=== PATIENT | female | born 1960 | race Caucasian/White ===

== ENCOUNTER 2018-12-09 07:49 | Day surgery (SDC) | payer BC, OTHER ==
[~2018-12-09 07:49] MED LIST: Midazolam 1 MG/ML 2 ML SDV ONE; Propofol 200 MG/20 ML SDV ONE; fentaNYL 100 MCG/2 ML SDV ONE
[2018-12-09] MEDS ORDERED: Sodium Chloride 0.9% 1,000 ML IV SCH (08:15)
--- NOTE | 2018-12-10 07:43 | OR ---
DATE OF PROCEDURE: 12/09/2018 SURGEON: Owen Avilez MD PROCEDURE: Colonoscopy. FINDINGS: Normal colonoscopy. COMPLICATIONS: None. HOCKEY PLAYER: None. ANESTHESIA: MAC. PREOPERATIVE DIAGNOSIS: Screening colonoscopy. POSTOPERATIVE DIAGNOSIS: Screening colonoscopy. RISKS: Risks, benefits, alternatives, and limitations including, but not limited to infection, bleeding, and perforation were explained to the patient who wished to proceed. PROCEDURE IN DETAIL: The patient was placed in left lateral decubitus position. Digital rectal exam was performed. Mild external hemorrhoids were noted along with a skin tag. Scope was introduced and advanced atraumatically to the ileocecal valve. A photo was taken of this. Scope was brought back to the ascending, transverse, descending colon, and retroflexed. No evidence of old or new blood. No masses. No diverticulosis. No colitis. The patient tolerated the procedure well. Owen Avilez MD /[id number]
== END 2018-12-09 11:03 | disposition home or self-care (01) ==
LOC: JP.SDS 07:49
PROVIDERS: ATTEND Surgery
DX: Z12.11 Encounter for screening for malignant neoplasm of colon (principal); K64.4 Residual hemorrhoidal skin tags
CPT/HCPCS: 45378; J2250; J2704; J3010; J7030

== ENCOUNTER 2019-12-30 18:40 | Emergency (ER) | payer OTHER, BC ==
[2019-12-30] MEDS ORDERED: Sodium Chloride 0.9% 10 ML Syringe FLUSH PRN (19:38)
[2019-12-30] MEDS ORDERED: Cyclobenzaprine 10 MG Tab PO ONE (19:39)
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
[2019-12-30] MEDS ORDERED: Sodium Chloride 0.9% 1,000 ML IV SCH (19:45)
[2019-12-30] MEDS ORDERED: Iopamidol 612 MG/ML 100 ML Bottle IV PRN (20:04)
[2019-12-30] MEDS ORDERED: Sodium Chloride 0.9% 10 ML SDV FLUSH ONE (20:04)
[2019-12-30] MEDS ORDERED: Sodium Chloride 0.9% 75 ML IV SCH (20:15)
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
== END 2019-12-30 22:21 | disposition home or self-care (01) ==
LOC: JP.ED 18:40
DX: S20.229A Contusion of unspecified back wall of thorax, initial encounter (principal); S80.02XA Contusion of left knee, initial encounter; M54.2 Cervicalgia; M25.532 Pain in left wrist; E03.9 Hypothyroidism, unspecified; Z88.0 Allergy status to penicillin; Z88.2 Allergy status to sulfonamides; Z79.899 Other long term (current) drug therapy; V89.2XXA Person injured in unspecified motor-vehicle accident, traffic, initial encounter; Y92.411 Interstate highway as the place of occurrence of the external cause
CPT/HCPCS: 36415; 71260; 72125; 73080-RT; 80048; 85025; 99284-25; A9270-GY; J7030; Q9967

== ENCOUNTER 2024-09-02 10:04 | Emergency (ER) | payer BC ==
[2024-09-02 11:33] LABS: BASOPHILS PERCENT AUTO 0.0 % (0.1-1.3); EOSINOPHILS PERCENT AUTO 0.0 % (0.0-5.4); IMMATURE GRAN PERCENT AUTO 0.9 % (0.0-0.7); LYMPHOCYTES ABSOLUTE AUTO 0.22 K/uL (0.8-3.3); LYMPHOCYTES PERCENT AUTO 9.4 % (11.4-47.7); MONOCYTES ABSOLUTE AUTO 0.19 K/uL (0.20-0.90); MONOCYTES PERCENT AUTO 8.2 % (3.3-12.6); NEUTROPHILS ABSOLUTE AUTO 1.90 K/uL (1.0-7.6); NEUTROPHILS PERCENT AUTO 81.5 % (40.0-78.1); RED BLOOD CELL COUNT 4.30 M/uL (3.77-5.24); WHITE BLOOD CELL COUNT,WBC 2.3 K/uL (3.2-11.0)
[2024-09-02 11:36] LABS: BASOPHILS ABSOLUTE AUTO 0.00 K/uL (0.00-0.10); EOSINOPHILS ABSOLUTE AUTO 0.00 K/uL (0.00-0.40); IMMATURE GRAN ABSOLUTE AUTO 0.02 K/uL (0.00-0.23); PLATELET COUNT,PLT 28 K/uL (130-375)
[2024-09-02] MEDS: Ondansetron 4 MG/2 ML SDV IVPUSH ONE (11:38)
[2024-09-02 12:04] LABS: A/G RATIO 0.9 (1.2-2.2); ALANINE AMINOTRANSFERASE,ALT 105 U/L (12-78); ASPARTATE AMNIOTRANSFERASE,AST 75 U/L (15-37); BILIRUBIN TOTAL 0.5 mg/dL (0.2-1.0); BLOOD UREA NITROGEN,BUN 14 mg/dL (7-18); CARBON DIOXIDE,CO2 28 mmol/L (21-32); CHLORIDE,CL 91 mmol/L (100-108); CREATININE 1.0 mg/dL (0.6-1.0); EST CRCL DRUG DOSING (CG) 46.13 mL/min; ESTIMATED GFR 64 mL/min (>60); GLUCOSE RANDOM 111 mg/dL (74-106); POTASSIUM,K 3.5 mmol/L (3.6-5.2); PROTEIN TOTAL,TP 6.8 g/dL (6.4-8.2); SODIUM,NA 127 mmol/L (140-148); TSH ULTRASENSITIVE 0.556 uIU/mL (0.358-3.740)
[2024-09-02 12:52] LABS: APPEARANCE,URINE CLOUDY (CLEAR); GLUCOSE,URINE NEGATIVE (NEGATIVE); OCCULT BLOOD,URINE LARGE (NEGATIVE)
[2024-09-02] MEDS: Potassium Chloride 20 MEQ Tab.ER PO ONE (13:08)
[2024-09-02 13:20] LABS: EPITHELIAL CELLS,URINE MODERATE
[2024-09-07 14:27] LABS: ANAPLASMA PHAGOCYTOPHILUM PCR Detected; BABESIA MICROTI BY PCR Not Detected; EHRLICHIA CHAFFEENSIS BY PCR Not Detected; EHRLICHIA EWINGII/CANIS BY PCR Not Detected; EHRLICHIA MURIS-LIKE BY PCR Not Detected
== END 2024-09-02 16:17 | disposition home or self-care (01) ==
LOC: JP.ED 10:04
DX: N39.0 Urinary tract infection, site not specified (principal); R79.89 Other specified abnormal findings of blood chemistry; D72.819 Decreased white blood cell count, unspecified; D69.6 Thrombocytopenia, unspecified; E87.6 Hypokalemia; E87.1 Hypo-osmolality and hyponatremia; A84.9 Tick-borne viral encephalitis, unspecified; Z88.0 Allergy status to penicillin; Z88.2 Allergy status to sulfonamides; Z79.890 Hormone replacement therapy; E03.9 Hypothyroidism, unspecified; Z90.710 Acquired absence of both cervix and uterus
CPT/HCPCS: 70450; 80053; 81001; 82947; 83036; 83735; 84443; 84484; 85025; 86618; 87086; 87468; 87469; 87484; 87798; 93005; 96361; 96365; 96366; 96375; 99284; A9270; J2405; J3490; J7030; J7050; 36415; 87088; 87186; 93010